=== PATIENT | female | born 1995 ===

== ENCOUNTER → 2020-09-20 | Outpatient (CLI) | payer BC | END | disposition home or self-care (01) | LOC: LAB SHORT 13:16 | DX: R30.0 Dysuria (principal) | CPT/HCPCS: 87086 ==

== ENCOUNTER → 2024-08-25 | Outpatient (CLI) | payer OTHER | LOC: LAB 13:10 → LAB SHORT 13:10 | DX: Z34.90 Encounter for supervision of normal pregnancy, unspecified, unspecified trimester (principal) | CPT/HCPCS: 87081; 87150 ==

== ENCOUNTER 2024-09-15 18:10 | Inpatient (IN) | payer OTHER ==
[~2024-09-15] VITALS: Ht 172.7 cm; Wt 99.7 kg
[2024-09-15] MEDS ORDERED: Oxytocin 10 Unit / ML Vial IM PRN (18:35)
[2024-09-15] MEDS ORDERED: Misoprostol 200 MCG Tab PR PRN (18:35)
[2024-09-15] MEDS ORDERED: Tranexamic Acid 100 ML IV SCH (18:35)
[2024-09-15] MEDS ORDERED: Lactated Ringer's 1,000 ML IV SCH ×2 (18:35)
[2024-09-15] MEDS ORDERED: OXYTOCIN/RINGER'S LACTATE 500 ML IV PRN (18:35)
[2024-09-15] MEDS ORDERED: Lactated Ringer's 1,000 ML IV PRN ×3 (18:35→21:10)
[2024-09-15] MEDS ORDERED: Acetaminophen 500 MG Tab PO PRN (18:35)
[2024-09-15] MEDS ORDERED: ePHEDrine Sulfate 50 MG/ML 1ML Injection XX PRN (18:35)
[2024-09-15] MEDS ORDERED: Methylergonovine Maleate 0.2MG / ML 1ML Amp IM PRN (18:35)
[2024-09-15] MEDS ORDERED: FentaNYL 2mcg/ml-Bup 0.1% Epd 250 ML EPI PRN (18:35)
[2024-09-15] MEDS ORDERED: Carboprost Tromethamine 250 MCG/ML 1ML Amp IM PRN (18:35)
[2024-09-15] MEDS ORDERED: Misoprostol 200 MCG Tab BC PRN (18:35)
[2024-09-15] MEDS ORDERED: Ondansetron HCl 2 MG / ML 2ML Vial IV PRN (18:35)
[2024-09-15] MEDS ORDERED: Calcium Carbonate 500 MG Tab Chew PO SCH (18:40)
[2024-09-15 18:43] VITALS: BP 124/83
[2024-09-15] MEDS ORDERED: PRENATAL TABLE1 EAC2 PO (18:53)
[2024-09-15 19:08] LABS: BASOPHILS ABSOLUTE AUTO 0.04 K/mm3 (0.00-0.23); BASOPHILS PERCENT AUTO 0 % (0-2); EOSINOPHILS ABSOLUTE AUTO 0.16 K/mm3 (0.00-0.68); EOSINOPHILS PERCENT AUTO 1 % (0-6); Hematocrit 36.2 % (33.0-51.0); Hemoglobin 12.7 g/dL (11.5-16.0); IMMATURE GRAN ABSOLUTE AUTO 0.07 K/mm3 (0.00-0.10); IMMATURE GRAN PERCENT AUTO 1 % (0-1); LYMPHOCYTES ABSOLUTE AUTO 2.05 K/mm3 (0.84-5.20); LYMPHOCYTES PERCENT AUTO 18 % (21-46); MONOCYTES ABSOLUTE AUTO 0.65 K/mm3 (0.16-1.47); MONOCYTES PERCENT AUTO 6 % (4-13); Mean Corpuscular HGB 30.2 pg (26.0-34.0); Mean Corpuscular HGB Conc 35.1 g/dL (31.5-36.5); Mean Corpuscular Volume 86 fL (80-100); Mean Platelet Volume 11.4 fL (9.1-12.4); NEUTROPHILS ABSOLUTE AUTO 8.46 K/mm3 (1.96-9.15); NEUTROPHILS PERCENT AUTO 74 % (41-73); Platelet Count 232 K/mm3 (150-400); RDW Coefficient Variation 12.4 % (11.7-14.2); RDW Standard Deviation 38.3 fL (35.1-46.3); Red Blood Cell Count 4.21 M/mm3 (3.80-5.20); White Blood Cell Count 11.43 K/mm3 (4.00-11.30)
[2024-09-15] MEDS ORDERED: Zolpidem Tartrate 10 MG Tab PO ONE (19:50)
[2024-09-15 19:58] VITALS: BP 138/76
[2024-09-15] MEDS ORDERED: OXYTOCIN/RINGER'S LACTATE 500 ML IV SCH (20:40)
[2024-09-15 23:16] VITALS: BP 137/84
[2024-09-15] MEDS ORDERED: FentaNYL Citrate 50 MCG/ML 2 ML Injection IV PRN (23:45)
[2024-09-16] VITALS (17 sets, daily range): BP systolic 115–144; BP diastolic 57–87
[2024-09-16] MEDS ORDERED: Lidocaine 2% 5 ML SDV ONE (00:38)
[2024-09-16] MEDS ORDERED: Metoclopramide HCl 5MG / ML 2ML Vial IV PRN (00:50)
[2024-09-16] MEDS ORDERED: Ondansetron HCl 2 MG / ML 2ML Vial IV PRN (00:50)
[2024-09-16] MEDS ORDERED: DiphenhydrAMINE HCl 50 MG/ML 1ML Vial IV PRN (00:50)
[2024-09-16] MEDS ORDERED: ePHEDrine Sulfate 50 MG/ML 1ML Injection IV PRN (00:50)
[2024-09-16] MEDS ORDERED: Naloxone HCl 0.4MG / ML 1ML Vial IV PRN (00:55)
[2024-09-16] MEDS ORDERED: Lidocaine HCl 2% 10 ML SDA EPI SCH (01:00)
[2024-09-16] MEDS ORDERED: FentaNYL 2mcg/ml-Bup 0.1% Epd 250 ML EPI PRN (01:15)
[2024-09-16] MEDS ORDERED: Methylergonovine Maleate 0.2MG / ML 1ML Amp IM PRN (04:00)
[2024-09-16] MEDS ORDERED: Benzocaine Topical Anesthetic Spray 60GM TOP PRN (04:05)
[2024-09-16] MEDS ORDERED: Carboprost Tromethamine 250 MCG/ML 1ML Amp IM PRN (04:05)
[2024-09-16] MEDS ORDERED: Acetaminophen 500 MG Tab PO PRN (04:05)
[2024-09-16] MEDS ORDERED: Misoprostol 200 MCG Tab PR PRN (04:05)
[2024-09-16] MEDS ORDERED: Lactated Ringer's 1,000 ML IV SCH (04:05)
[2024-09-16] MEDS ORDERED: Ketorolac Tromethamine 30mg Vial IV PRN (04:05)
[2024-09-16] MEDS ORDERED: Lanolin Cream TOP PRN (04:10)
[2024-09-16] MEDS ORDERED: Ibuprofen 400 MG Tab PO PRN (04:10)
[2024-09-16] MEDS ORDERED: Oxytocin 10 Unit / ML Vial IM ONE (04:10)
[2024-09-16] MEDS ORDERED: OXYTOCIN/RINGER'S LACTATE 500 ML IV SCH (04:10)
[2024-09-16] MEDS ORDERED: FLU VACC TS2024-25(6MOS UP)/PF 45 MCG/0.5 ML SYRINGE IM ONE (04:10)
[2024-09-16] MEDS ORDERED: Docusate Sodium 100 MG Cap PO PRN (04:10)
[2024-09-16] MEDS ORDERED: Witch Hazel/Glycerin PADS TOP PRN (04:10)
[2024-09-16 06:26] LABS: BASOPHILS ABSOLUTE AUTO 0.03 K/mm3 (0.00-0.23); BASOPHILS PERCENT AUTO 0 % (0-2); EOSINOPHILS ABSOLUTE AUTO 0.01 K/mm3 (0.00-0.68); EOSINOPHILS PERCENT AUTO 0 % (0-6); Hematocrit 33.1 % (33.0-51.0); Hemoglobin 11.7 g/dL (11.5-16.0); IMMATURE GRAN ABSOLUTE AUTO 0.08 K/mm3 (0.00-0.10); IMMATURE GRAN PERCENT AUTO 1 % (0-1); LYMPHOCYTES ABSOLUTE AUTO 1.59 K/mm3 (0.84-5.20); LYMPHOCYTES PERCENT AUTO 9 % (21-46); MONOCYTES ABSOLUTE AUTO 0.74 K/mm3 (0.16-1.47); MONOCYTES PERCENT AUTO 4 % (4-13); Mean Corpuscular HGB 30.5 pg (26.0-34.0); Mean Corpuscular HGB Conc 35.3 g/dL (31.5-36.5); Mean Corpuscular Volume 86 fL (80-100); NEUTROPHILS PERCENT AUTO 86 % (41-73); Platelet Count 223 K/mm3 (150-400); RDW Coefficient Variation 12.5 % (11.7-14.2); RDW Standard Deviation 38.9 fL (35.1-46.3); Red Blood Cell Count 3.84 M/mm3 (3.80-5.20); White Blood Cell Count 17.65 K/mm3 (4.00-11.30)
[2024-09-16] MEDS ORDERED: Prenatal Vit/FE Fumarate/FA 1 Tab PO SCH (09:00)
[2024-09-17 05:48] VITALS: BP 116/60
[2024-09-17 06:28] LABS: BASOPHILS ABSOLUTE AUTO 0.04 K/mm3 (0.00-0.23); BASOPHILS PERCENT AUTO 0 % (0-2); EOSINOPHILS ABSOLUTE AUTO 0.23 K/mm3 (0.00-0.68); EOSINOPHILS PERCENT AUTO 2 % (0-6); Hematocrit 29.3 % (33.0-51.0); Hemoglobin 10.1 g/dL (11.5-16.0); IMMATURE GRAN PERCENT AUTO 1 % (0-1); LYMPHOCYTES ABSOLUTE AUTO 2.19 K/mm3 (0.84-5.20); LYMPHOCYTES PERCENT AUTO 19 % (21-46); MONOCYTES ABSOLUTE AUTO 0.61 K/mm3 (0.16-1.47); MONOCYTES PERCENT AUTO 5 % (4-13); Mean Corpuscular HGB 30.5 pg (26.0-34.0); Mean Corpuscular HGB Conc 34.5 g/dL (31.5-36.5); Mean Corpuscular Volume 89 fL (80-100); Mean Platelet Volume 11.2 fL (9.1-12.4); NEUTROPHILS ABSOLUTE AUTO 8.38 K/mm3 (1.96-9.15); NEUTROPHILS PERCENT AUTO 73 % (41-73); Platelet Count 168 K/mm3 (150-400); RDW Coefficient Variation 12.6 % (11.7-14.2); RDW Standard Deviation 40.1 fL (35.1-46.3); Red Blood Cell Count 3.31 M/mm3 (3.80-5.20); White Blood Cell Count 11.55 K/mm3 (4.00-11.30)
[2024-09-17 07:36] VITALS: BP 112/65
[2024-09-17 13:10] VITALS: BP 127/63
== END 2024-09-17 13:40 | disposition home or self-care (01) | DRG 807 ==
LOC: OBS 18:10 → BC 18:10 → OBS 18:26 → BC 18:26
PROVIDERS: Advanced Practice Midwife; ADMIT Advanced Practice Midwife
PROC: 10E0XZZ Delivery of Products of Conception, External Approach (ICD-10-PCS; principal; 2024-09-16)
PROC: 0KQM0ZZ Repair Perineum Muscle, Open Approach (ICD-10-PCS; 2024-09-16)
PROC: 3E0R3BZ Introduction of Anesthetic Agent into Spinal Canal, Percutaneous Approach (ICD-10-PCS; 2024-09-16)
PROC: 00HU33Z Insertion of Infusion Device into Spinal Canal, Percutaneous Approach (ICD-10-PCS; 2024-09-16)
DX: O42.02 Full-term premature rupture of membranes, onset of labor within 24 hours of rupture (principal); Z37.0 Single live birth; Z3A.39 39 weeks gestation of pregnancy; O70.1 Second degree perineal laceration during delivery
CPT/HCPCS: 36415; 51702; 59025; 85025; 86850; 86900; 86901; 99214; A9270; J1885; J2590; J7120

== ENCOUNTER → 2024-10-31 | Outpatient (CLI) | payer OTHER ==
[~2024-10-31] MED LIST: PRENATAL TABLE1 EAC2 PO
== END | disposition home or self-care (01) ==
LOC: LAB 12:11 → LAB SHORT 12:11
PROVIDERS: Advanced Practice Midwife
DX: Z01.419 Encounter for gynecological examination (general) (routine) without abnormal findings (principal)
CPT/HCPCS: G0123